=== PATIENT | male | born 1985 | race Caucasian/White ===

== ENCOUNTER 2024-09-02 12:19 | Emergency (ER) | payer MEDICARE, OTHER ==
[~2024-09-02] VITALS: Ht 167.6 cm; Wt 75.0 kg
[2024-09-02 12:38] VITALS: O2SAT 96
[2024-09-02 12:54] VITALS: BP 135/99; PULSE 80; RESP 18; TEMP 97.8; O2SAT 95
[2024-09-02 13:34] LABS: BASOPHILS % 0.8 % (0.0-2.0); EOSINOPHILS % 3.3 % (0.0-5.0); HEMATOCRIT. 50.1 % (42.0-52.0); HEMOGLOBIN. 15.8 g/dL (14.0-18.0); LYMPHOCYTES % 24.2 % (20.0-50.0); MEAN CORPUSCULAR HEMOGLOBIN 26.1 pg (28.0-32.0); MEAN CORPUSCULAR HGB CONC 31.4 g/dL (31.0-37.0); MEAN CORPUSCULAR VOLUME 82.9 fL (80.0-94.0); MEAN PLATELET VOLUME 7.4 fl (7.4-10.4); MONOCYTES % 8.5 % (2.0-8.0); NEUTROPHILS % 63.2 % (40.0-76.0); PLATELET 355 x1000/uL (130-400); RED BLOOD CELL COUNT 6.05 mill/uL (4.7-6.1); RED CELL DISTRIBUTION WIDTH 15.3 % (11.6-14.6); WHITE BLOOD COUNT 9.3 x1000/uL (4.5-11.0)
[2024-09-02 13:42] LABS: CHLORIDE 107 mEq/L (98-107); POTASSIUM 4.2 mEq/L (3.5-5.1); SODIUM 139 mEq/L (136-145)
[2024-09-02 13:43] LABS: CALCIUM 9.3 mg/dL (8.7-10.4); CARBON DIOXIDE 25 mEq/L (21-32)
[2024-09-02 13:48] LABS: CREATININE 0.8 mg/dL (0.6-1.3); GLUCOSE 96 mg/dL (70-105); UREA NITROGEN BLOOD 15 mg/dL (9-23)
[2024-09-02 13:50] LABS: ALANINE AMINOTRANSFERASE 116 IU/L (10-49); ALBUMIN 4.2 g/dL (3.2-4.8); ASPARTATE AMINOTRANSFERASE 59 IU/L (<34); BILIRUBIN DIRECT 0.2 mg/dL (<=3.0)
[2024-09-02 13:51] LABS: BILIRUBIN TOTAL 0.9 mg/dL (0.1-1.0); PROTEIN TOTAL 7.7 g/dL (6.0-8.3)
[2024-09-02] MEDS ORDERED: DICYCLOMINE 10 MG/5 ML ORAL SYR PO STA (14:01)
[2024-09-02] MEDS: ACETAMINOPHEN 325MG TABLET PO STA (14:57)
[2024-09-02] MEDS: DICYCLOMINE HCL 10MG CAPSULE PO NR (14:57)
[2024-09-02] MEDS: MAGNESIUM/ALUMINUM HYDROXIDE/SIMETHICONE 30ML UDC PO STA (14:57)
[2024-09-02] MEDS ORDERED: ACET-2708 MT (15:55)
== END 2024-09-02 16:08 | disposition home or self-care (01) ==
LOC: ER 12:19
DX: G44.209 Tension-type headache, unspecified, not intractable (principal); R10.9 Unspecified abdominal pain; Z98.890 Other specified postprocedural states
CPT/HCPCS: 36415; 74176; 80048; 80076; 85025; 99284

== ENCOUNTER 2024-12-25 20:25 | Emergency (ER) | payer MEDICARE, OTHER ==
[~2024-12-25] VITALS: Ht 162.6 cm; Wt 81.0 kg
[~2024-12-25 20:25] MED LIST: ACET-2708 MT
[2024-12-25 20:27] VITALS: O2SAT 97
[2024-12-25 20:51] VITALS: BP 133/87; PULSE 82; RESP 16; TEMP 36.7; O2SAT 100
[2024-12-25] MEDS ORDERED: LIDOCAINE HCL/PF 1% 10 MG/ML 5ML VIAL INFIL ONE (23:00)
[2024-12-25] MEDS ORDERED: BACITRACIN ZINC OINT UDPKT TOP ONE (23:00)
[2024-12-26] MEDS: TETANUS, DIPHTHERIA, PERTUSSIS VAC/PF 0.5ML (>10YR OLD) IM ONE (00:37)
== END 2024-12-26 02:22 | disposition home or self-care (01) ==
LOC: ER 20:25
DX: S01.01XA Laceration without foreign body of scalp, initial encounter (principal); Z86.73 Personal history of transient ischemic attack (TIA), and cerebral infarction without residual deficits; Z88.0 Allergy status to penicillin; Z88.1 Allergy status to other antibiotic agents; Z98.2 Presence of cerebrospinal fluid drainage device; W18.11XA Fall from or off toilet without subsequent striking against object, initial encounter; Y93.89 Activity, other specified; Y92.89 Other specified places as the place of occurrence of the external cause; Y99.8 Other external cause status
CPT/HCPCS: 12002; 90471; 90715; 99285

== ENCOUNTER 2025-01-05 15:07 | Emergency (ER) | payer SELFPAY ==
[~2025-01-05] VITALS: Ht 162.6 cm; Wt 87.0 kg
[2025-01-05 15:16] VITALS: O2SAT 99
[2025-01-05 15:32] VITALS: BP 134/99; PULSE 82; RESP 18; TEMP 36.9; O2SAT 95
== END 2025-01-05 16:25 | disposition home or self-care (01) ==
LOC: ER 15:07
DX: S01.01XD Laceration without foreign body of scalp, subsequent encounter (principal); X58.XXXD Exposure to other specified factors, subsequent encounter; Z88.0 Allergy status to penicillin; Z88.1 Allergy status to other antibiotic agents
CPT/HCPCS: 99281

== ENCOUNTER 2025-04-16 11:18 | Emergency (ER) | payer MEDICARE, OTHER ==
[~2025-04-16] VITALS: Ht 162.6 cm; Wt 91.0 kg
[~2025-04-16 11:18] MED LIST changes: -ACET-2708 MT; +ARIP400S3 IM; +DEPSPR PO; +KEPP500 PO; +RISP1 PO; +RISP1SOL4 PO
[2025-04-16 11:23] VITALS: O2SAT 99
[2025-04-16 12:04] LABS: BASOPHILS % 0.8 % (0.0-2.0); EOSINOPHILS % 2.1 % (0.0-5.0); HEMATOCRIT. 47.9 % (42.0-52.0); HEMOGLOBIN. 15.8 g/dL (14.0-18.0); LYMPHOCYTES % 25.9 % (20.0-50.0); MEAN CORPUSCULAR HEMOGLOBIN 26.5 pg (28.0-32.0); MEAN CORPUSCULAR HGB CONC 32.9 g/dL (31.0-37.0); MEAN CORPUSCULAR VOLUME 80.6 fL (80.0-94.0); MEAN PLATELET VOLUME 7.4 fl (7.4-10.4); MONOCYTES % 9.2 % (2.0-8.0); PLATELET 302 x1000/uL (130-400); RED BLOOD CELL COUNT 5.95 mill/uL (4.7-6.1); RED CELL DISTRIBUTION WIDTH 15.1 % (11.6-14.6); WHITE BLOOD COUNT 8.2 x1000/uL (4.5-11.0)
[2025-04-16 12:12] LABS: CHLORIDE 106 mEq/L (98-107); POTASSIUM 3.9 mEq/L (3.5-5.1); SODIUM 137 mEq/L (136-145)
[2025-04-16 12:14] LABS: CARBON DIOXIDE 26 mEq/L (21-32)
[2025-04-16 12:19] LABS: CREATININE 0.8 mg/dL (0.6-1.3); GLUCOSE 92 mg/dL (70-105); UREA NITROGEN BLOOD 11 mg/dL (9-23)
[2025-04-16 12:20] LABS: TROPONIN I HIGH SENSITIVITY < 4 ng/L (3.0-53)
[2025-04-16 12:21] LABS: ALANINE AMINOTRANSFERASE 55 IU/L (10-49); ALBUMIN 4.4 g/dL (3.2-4.8); ASPARTATE AMINOTRANSFERASE 28 IU/L (<34); BILIRUBIN DIRECT 0.4 mg/dL (<=3.0)
[2025-04-16 12:22] LABS: BILIRUBIN TOTAL 1.1 mg/dL (0.1-1.0); PROTEIN TOTAL 7.4 g/dL (6.0-8.3)
[2025-04-16 12:36] LABS: PROTHROMBIN TIME 11.1 sec (9.6-11.0)
[2025-04-16] MEDS ORDERED: IBUP-2029 MT (14:40)
[2025-04-16 14:54] VITALS: BP 142/83; PULSE 72; RESP 16; TEMP 36.9; O2SAT 99
== END 2025-04-16 15:04 | disposition home or self-care (01) ==
LOC: ER 11:18
DX: M19.071 Primary osteoarthritis, right ankle and foot (principal); M19.072 Primary osteoarthritis, left ankle and foot; R06.02 Shortness of breath; Z88.0 Allergy status to penicillin; Z88.1 Allergy status to other antibiotic agents; Z79.899 Other long term (current) drug therapy; Z98.890 Other specified postprocedural states; Z86.73 Personal history of transient ischemic attack (TIA), and cerebral infarction without residual deficits
CPT/HCPCS: 36415; 71045; 73620; 80048; 80076; 83880; 84484; 85025; 93005; 93970; 99285

== ENCOUNTER 2025-08-17 11:55 | Emergency (ER) | payer MEDICARE, MEDICAID ==
[~2025-08-17] VITALS: Ht 162.6 cm; Wt 91.0 kg
[~2025-08-17 11:55] MED LIST changes: +IBUP-1455 MT
[2025-08-17 12:17] VITALS: TEMP 36.8; O2SAT 97
[2025-08-17 15:18] VITALS: BP 113/89; PULSE 148; RESP 18; O2SAT 100
[2025-08-17 16:47] VITALS: TEMP 98.2
[2025-08-17] MEDS: ACETAMINOPHEN 500MG TABLET PO ONE (16:47)
== END 2025-08-17 17:50 | disposition home or self-care (01) ==
LOC: ER 11:55
DX: M25.561 Pain in right knee (principal); Z86.73 Personal history of transient ischemic attack (TIA), and cerebral infarction without residual deficits; Z88.0 Allergy status to penicillin; Z88.1 Allergy status to other antibiotic agents
CPT/HCPCS: 73562; 99283